=== PATIENT | female | born 1945 | race Caucasian/White ===

== ENCOUNTER → 2017-08-19 | Outpatient (CLI) | payer MEDICARE ==
[~2017-08-19] MED LIST: ACET500T68 PO; AMOX-559 PO; ASPI81TA94 PO; ATOR-1 PO; ATOR10TA24 PO; ATOR40TA69 PO; CEPH250C37 PO; CEPH500C24 PO; CHOL200022 PO; DICL100G39; DICL100G39 TOP; DOXY-179 PO; DULO60CA7 PO; ESTR10TA4 VG; ESTR42.5 VA; FLUT9.9S; FOLI0.4T56 PO; GABA-549 PO; HYDR-2966 PO; HYDR12.556 PO; LEVO50TA86 PO; LISI20TA29 PO; METF-410 PO; OMEP40CA48 PO; PARO40TA88 PO; POLY119P37 PO; POLY17PO25 PO; TRAM-420 PO; TRAZ-156 PO
== END ==
LOC: AUD 13:00
PROVIDERS: ATTEND Otolaryngology
DX: H69.81 Other specified disorders of Eustachian tube, right ear (principal)
CPT/HCPCS: 92557; 92570

== ENCOUNTER → 2017-09-11 | Outpatient (CLI) | payer MEDICARE, OTHER ==
[~2017-09-11] VITALS: Ht 157.5 cm; Wt 81.6 kg
[~2017-09-11] MED LIST changes: +CELECOXIB 200 MG CAP PO ONE; +FAMOTIDINE 20 MG TAB PO ONE; +LIDOCAINE/SOD BICARB 8.4% SYR ID ONE; +MELA10TA7 PO; +MIDAZOLAM 2 MG/2 ML VIAL IVP ONE; +NORMOSOL R SOLN(*) 1000 ML BAG 1,000 ML IV PRN; +ceFAZolin(*) 2GM/D5W 50ML 50 ML IVPB ONE
--- NOTE | 2017-09-11 15:12 | EKG ---
FACILITY: [facility] PATIENT NAME: JAG ALVES : [id number] MR: [id number] V: [id number] EXAM DATE: ORDERING PHYSICIAN: TRACY SHORT TECHNOLOGIST: Test Reason : Blood Pressure : / mmHG Vent. Rate : 072 BPM Atrial Rate : 072 BPM P-R Int : 166 ms QRS Dur : 092 ms QT Int : 422 ms P-R-T Axes : 063 -02 049 degrees QTc Int : 462 ms Normal sinus rhythm Possible Left atrial enlargement Poor R wave progression Incomplete right bundle branch block Abnormal ECG No previous ECGs available Confirmed by SRINIVAS BRAR ([id number]) on 09/12/2017 5:48:12 AM Referred By: IDALMIS HYATT Confirmed By:SRINIVAS BRAR
== END ==
LOC: RESP 08:00 → OR 09-16 00:18 → EDSTATUS 09-16 07:00
PROVIDERS: ATTEND Orthopaedic Surgery Hand Surgery
DX: Z01.810 Encounter for preprocedural cardiovascular examination (principal); M19.042 Primary osteoarthritis, left hand; I10 Essential (primary) hypertension; E03.9 Hypothyroidism, unspecified; E78.5 Hyperlipidemia, unspecified; K21.9 Gastro-esophageal reflux disease without esophagitis; G47.33 Obstructive sleep apnea (adult) (pediatric); R94.31 Abnormal electrocardiogram [ECG] [EKG]
CPT/HCPCS: 93005

== ENCOUNTER → 2017-10-07 | Outpatient (CLI) | payer MEDICARE ==
[~2017-10-07] MED LIST changes: -CELECOXIB 200 MG CAP PO ONE; -FAMOTIDINE 20 MG TAB PO ONE; -LIDOCAINE/SOD BICARB 8.4% SYR ID ONE; +LISI-362 PO; -MIDAZOLAM 2 MG/2 ML VIAL IVP ONE; -NORMOSOL R SOLN(*) 1000 ML BAG 1,000 ML IV PRN; -ceFAZolin(*) 2GM/D5W 50ML 50 ML IVPB ONE
== END ==
LOC: LAB 10:50
PROVIDERS: ATTEND Emergency Medicine
DX: E78.00 Pure hypercholesterolemia, unspecified (principal)
CPT/HCPCS: 36415; 82465; 83718; 84478

== ENCOUNTER 2017-10-30 04:05 | Day surgery (SDC) | payer MEDICARE ==
[~2017-10-30] VITALS: Ht 157.5 cm; Wt 76.7 kg
[2017-10-30] MEDS ORDERED: ONDANSETRON 4 MG/2 ML VIAL ONE (11:19)
[2017-10-30 12:00] VITALS: BP 132/68
[2017-10-30] MEDS ORDERED: PROPOFOL EMUL(*) 10MG/ML 20 ML 20 ML ONE (12:14)
[2017-10-30] MEDS ORDERED: LIDOCAINE MPF 1% 5 ML VIAL ONE (12:14)
[2017-10-30] MEDS ORDERED: DEXAMETHASONE SOD PHOS 10MG/ML ONE (12:14)
[2017-10-30] MEDS ORDERED: METOCLOPRAMIDE 10 MG/2 ML SDV ONE (12:28)
[2017-10-30] MEDS ORDERED: fentaNYL CITR 100 MCG/2 ML AMP ONE ×3 (12:28→16:11)
[2017-10-30] MEDS ORDERED: CELECOXIB 200 MG CAP PO ONE (12:30)
[2017-10-30] MEDS ORDERED: ceFAZolin(*) 1 GM VIAL 1 GM in NS(*) 0.9% 100 ML ADDVANT BAG 100 ML IVPB ONE (12:30)
[2017-10-30] MEDS ORDERED: NORMOSOL R SOLN(*) 1000 ML BAG 1,000 ML IV PRN (12:30)
[2017-10-30] MEDS ORDERED: LIDOCAINE/SOD BICARB 8.4% SYR ID ONE (12:30)
[2017-10-30] MEDS ORDERED: FAMOTIDINE 20 MG TAB PO ONE (12:30)
[2017-10-30] MEDS ORDERED: MIDAZOLAM 2 MG/2 ML VIAL IVP PRN (12:30)
[2017-10-30] MEDS ORDERED: ePHEDrine 25 MG/5 ML DISP.SYR IVP ONE ×2 (12:50→15:37)
[2017-10-30] MEDS ORDERED: BACITRACIN/POLYMY B OINT 15 GM TP ONE (13:51)
[2017-10-30] MEDS ORDERED: ROPIVACAINE 0.2% 20 ML VIAL ONE (13:51)
[2017-10-30] MEDS ORDERED: LIDOCAINE 1%MDV(*)200 MG/20 ML 1 ML ONE (14:21)
[2017-10-30] MEDS ORDERED: methylPREDNIS ACE 40MG/ML VIAL ONE ×2 (14:21→14:40)
[2017-10-30] MEDS ORDERED: KETOROLAC 15 MG/ML VIAL ONE (16:22)
[2017-10-30] MEDS ORDERED: ACETAMINOPHEN(*)1000 MG/100 ML 100 ML IVPB ONE (16:30)
[2017-10-30] MEDS ORDERED: HYDR-385 PO (16:53)
[2017-10-30] MEDS ORDERED: CEPH500T7 PO (16:53)
[2017-10-30 17:00] VITALS: BP 107/65
[2017-10-30 17:15] VITALS: BP 98/69
[2017-10-30] MEDS ORDERED: oxyCODONE HCL 5 MG CAP ONE (17:27)
[2017-10-30 17:31] VITALS: BP 100/68
[2017-10-30 17:35] VITALS: BP 96/87
[2017-10-30] MEDS ORDERED: ACET/HYDROC 5/325MG TH ER ONLY 2 TAB/BOTTLE PO ONE ×2 (17:35)
[2017-10-30 17:37] VITALS: BP 120/69
--- NOTE | 2017-10-30 19:56 | OPERATIVE REPORT 1 ---
EVENT DATE: October 30, 2017 SURGEON: Kendall Khan MD ANESTHESIOLOGIST: Eliecer Neri MD ANESTHESIA: General. SEQUINS STRINGER: Magdiel Ferguson PA-C PREOPERATIVE DIAGNOSES 1. Left basal joint arthritis. 2. Bilateral knee pain with known arthritis. POSTOPERATIVE DIAGNOSES 1. Left basal joint arthritis. 2. 2. Bilateral knee pain with known arthritis. PROCEDURE PERFORMED Left basal joint arthroplasty with pinning. ESTIMATED BLOOD LOSS Minimal. INTRAVENOUS FLUIDS 1300 mL TOURNIQUET TIME 26 minutes SPECIMENS No specimens. COMPLICATIONS No complications. IMPLANTS USED One 0.054 inch K-wire. SUMMARY OF PROCEDURE The patient was brought into the operating room and placed on the OR table in the supine position with the hand table at her left side. After obtaining adequate general anesthesia, the left upper extremity was prepped and draped in the usual sterile fashion. The limb was exsanguinated, and the tourniquet was inflated to 250 mmHg. A longitudinal incision was made over the basal joint and deepened through skin and subcutaneous tissue by blunt spreading to move the radial sensory nerve branches out of the way. The radial artery and venae comitantes were then identified and protected with a vessel loop, after which the capsule was incised. Unipolar cautery was used to DICTATION ENDS HERE. [facility]
--- NOTE | 2017-10-30 20:22 | OPERATIVE REPORT 1 ---
EVENT DATE: October 30, 2017 SURGEON: Kendall Khan MD ANESTHESIOLOGIST: Eliecer Neri MD ANESTHESIA: General. FOUNTAIN SERVER: Magdiel Ferguson PA-C PREOPERATIVE DIAGNOSES 1. Left basal joint arthritis. 2. Right knee pain. POSTOPERATIVE DIAGNOSES 1. Left basal joint arthritis. 2. Right knee pain. PROCEDURES PERFORMED 1. Left basal joint arthroplasty with pinning of the first to second metacarpal. 2. Steroid injection at right knee. ESTIMATED BLOOD LOSS Minimal. INTRAVENOUS FLUIDS 1300 mL TOURNIQUET TIME 26 minutes SPECIMENS No specimens. COMPLICATIONS No complications. IMPLANTS USED One 0.054-inch K-wire. SUMMARY OF PROCEDURE The patient was brought into the operating room and placed on the OR table in the supine position. After obtaining adequate general anesthesia, the left upper extremity was prepped and draped in the usual sterile fashion. The limb was exsanguinated. The tourniquet was inflated to 250 mmHg. A longitudinal incision was made over the basal joint and deepened through skin and subcutaneous tissue by blunt spreading to move the radial sensory nerves out of the way. The radial artery and venae comitantes were then identified and protected with a vessel loop, after which unipolar cautery was used to open the joint capsule. The fluid was clear. No sign of infection was seen. The cautery unit was then used to separate the worn out trapezium and intermetacarpal osteophytes from the surrounding tissues. When we had gotten about 50% of it exposed, it was quartered with an osteotome and then removed piecemeal. Once it had been fully removed, the basal joint was irrigated. I placed a spacer between the scaphoid and first metacarpal and then put her hand in opposition as though she was gripping it, at which point a percutaneous 0.054 -inch K-wire was driven across the first metacarpal and out into the second and third metacarpals. A Jurgan ball was applied. Subsequent to this, the wound was irrigated, and then the capsule was closed with 4-0 FiberWire. We then deflated the tourniquet and controlled bleeding with bipolar cautery as necessary before closing skin with nylon. She was given a dry, sterile dressing and a thumb spica splint. Meanwhile, her right knee was prepped with iodine and alcohol, and a 2 mL Depo- Medrol and 8 mL lidocaine injection was given into the right knee. She had talked about trying to get a left knee injection, but because she has a total joint arthroplasty, we had told her previously that that was not indicated. LUKE
[2017-11-27] MEDS ORDERED: OMEP40CA48 PO (14:30)
[2017-11-27] MEDS ORDERED: TRAZ-156 PO (15:03)
== END 2017-10-30 17:00 | disposition home or self-care (01) ==
LOC: OR 04:05
PROVIDERS: ATTEND Orthopaedic Surgery Hand Surgery
DX: M13.842 Other specified arthritis, left hand (principal); M25.561 Pain in right knee; E11.9 Type 2 diabetes mellitus without complications
CPT/HCPCS: 26535; 36416; 82948; A4565; A9270; C1713; J0131; J0690; J1030; J1100; J1885; J2001; J2250; J2405; J2704; J2765; J2795; J3010; J7050

== ENCOUNTER → 2017-11-13 | Outpatient (CLI) | payer MEDICARE ==
[~2017-11-13] MED LIST changes: +CEPH500T7 PO; +HYDR-385 PO
== END ==
LOC: LAB 11:59
PROVIDERS: ATTEND Emergency Medicine
DX: G62.9 Polyneuropathy, unspecified (principal); E11.9 Type 2 diabetes mellitus without complications
CPT/HCPCS: 36415; 82607; 83036

== ENCOUNTER 2017-12-22 17:20 | Emergency (ER) | payer MEDICARE ==
[~2017-12-22 17:20] MED LIST changes: -METF-410 PO; +METF-411 PO
--- NOTE | 2017-12-22 17:33 | ER Report ---
History and Physical Time Seen By MD: 17:32 HPI/ROS CHIEF COMPLAINT: Lightheadedness HISTORY OF PRESENT ILLNESS: This is a 72-year-old female who presents to the emergency department for vague overall not feeling well symptoms and lightheadedness. Patient states over the last week or so she's had a listing to the left side a sensation when her eyes are closed and moving backwards however she's not having any pain, no headaches no nausea or vomiting. Patient also states she's had a little lightheadedness and no dizziness as well as "just not feeling quite well". Patient denies shortness of breath, chest pain, no rashes, no nausea or vomiting. REVIEW OF SYSTEMS: Constitutional: No fever, no chills. Eyes: No discharge. ENT: No sore throat. Cardiovascular: No chest pain, no palpitations. Respiratory: No cough, no shortness of breath. Gastrointestinal: No abdominal pain, no vomiting. Genitourinary: No hematuria. Musculoskeletal: No back pain. Skin: No rashes. Neurological: As above. Allergies: Coded Allergies: wool (Verified Allergy, Mild, itching/hives/rash, 12/22/17) Home Meds Active Scripts Diclofenac Sodium 1% Gel (VOLTAREN 1% GEL) 100 Gm Gel..gram., 4 GM TOP QID Y for PRN, #1 TUBE 4 Refills Prov:CAMDEN ARENAS MD 12/07/17 Trazodone Hcl (TRAZODONE HCL) 50 Mg Tablet, 1 TAB PO DAILY, #90 TAB 0 Refills Prov:RASHAWN POE APRNP-C 11/27/17 Omeprazole (OMEPRAZOLE) 40 Mg Capsule.dr, 1 CAPSULE PO DAILY, #90 CAP 3 Refills Prov:RASHAWN POE APRN CERTIFIED MEDICAL TECHNICIAN ASSISTANT-C 11/27/17 Tramadol Hcl (TRAMADOL HCL) 50 Mg Tablet, 50-100 MG PO Q4-6H, #180 TAB 5 Refills Prov:CAMDEN ARENAS MD 10/08/17 Lisinopril (LISINOPRIL) 10 Mg Tablet, 10 MG PO QDAY, #30 TAB 11 Refills Prov:CAMDEN ARENAS MD 10/08/17 Levothyroxine Sodium (LEVOTHYROXINE SODIUM) 50 Mcg Tablet, 1 TAB PO QDAY for 90 Days, #90 TAB 3 Refills Prov:CAMDEN ARENAS MD 09/08/17 Gabapentin (GABAPENTIN) 300 Mg Capsule, 2 CAPSULE PO BID for 90 Days, #360 CAPSULE 3 Refills Prov:CAMDEN ARENAS MD 09/08/17 Atorvastatin Calcium (ATORVASTATIN CALCIUM) 80 Mg Tablet, 1 TAB PO QDAY, #90 TAB 3 Refills Prov:CAMDEN ARENAS MD 09/08/17 Paroxetine Hcl (PAROXETINE HCL) 40 Mg Tablet, 1 TAB PO DAILY, #90 TAB 3 Refills Prov:CAMDEN ARENAS MD 09/08/17 Metformin Hcl (METFORMIN HCL) 500 Mg Tablet, 1 TAB PO BID, #180 TAB 3 Refills Prov:CAMDEN ARENAS MD 09/08/17 Polyethylene Glycol 3350 (Glycolax) 17 Gram/Dose Powder, 17 GM PO DAILY Y for PRN, #3 BOTTLE 3 Refills Prov:CAMDEN ARENAS MD 08/13/17 Fluticasone Propionate (Flonase Allergy Relief) 9.9 Ml [place].susp, 1 SPR NA PRN , #1 BOTTLE 11 Refills Prov:CAMDEN ARENAS MD 06/19/17 Reported Medications Melatonin (Melatonin) 10 Mg Tab.rapdis, 1 TAB PO QHS 09/08/17 Cholecalciferol (Vitamin D3) (Vitamin D-3) 2,000 Unit Tablet, 1 TAB PO DAILY 06/09/17 Acetaminophen (TYLENOL EXTRA STRENGTH) 500 Mg Tablet, 1-2 TAB PO Y for PRN, TAB 05/25/17 Folic Acid (FOLIC ACID) Unknown Strength Tablet, PO 05/25/17 Discontinued Reported Medications Cephalexin 500 Mg Tab (KEFLEX 500 MG TAB) 500 Mg Tablet, 500 MG PO Q6H, #12 TAB 10/30/17 Hydrocodone Bit/Acetaminophen (HYDROCODON-ACETAMINOPHEN 5-325) 1 Each Tablet, 1- 2 EACH PO Q4-6H Y for PAIN, #30 TAB 10/30/17 Past Medical/Surgical History Patient has a past medical and surgical history of migraines, hypotension, hypercholesterolemia, arthritis, right shoulder pain, right knee pain, wears glasses, hard of hearing, type II diabetes, hypothyroidism, depression, anxiety , hysterectomy, tonsillectomy, bilateral cataract removal. Reviewed Nurses Notes: Yes Hx Smoking: No Smoking Status: Never Smoker Hx Alcohol Use: Yes Constitutional Vital Sign - Last 24 Hours 12/22/17 12/22/17 12/22/17 12/22/17 17:27 17:35 17:50 17:57 Temp 97.8 Pulse 89 83 79 Resp 16 B/P (MAP) 125/90 86/79 (81) Pulse Ox 92 94 92 O2 Delivery Room Air 12/22/17 12/22/17 12/22/17 12/22/17 18:00 18:05 18:20 18:30 Pulse 76 74 B/P (MAP) 119/80 (93) 136/75 (95) Pulse Ox 95 91 12/22/17 12/22/17 12/22/17 18:35 18:50 19:00 Pulse 75 77 B/P (MAP) 127/65 (85) Pulse Ox 92 93 Intake and Output 12/22/17 12/22/17 12/23/17 15:00 23:00 07:00 Intake Total 500 ml Balance 500 ml Physical Exam General Appearance: The patient is alert, has no immediate need for airway protection and no signs of toxicity. Eyes: Pupils equal and round no pallor or injection. ENT, Mouth: Mucous membranes are moist. Respiratory: There are no retractions, lungs are clear to auscultation. Cardiovascular: Regular rate and rhythm, no murmurs, clicks or rubs. Gastrointestinal: Abdomen is soft and non tender, no masses, bowel sounds normal. Neurological: Alert and oriented 4. Moving all extremities. No focal neuro deficits. Following all commands. Cranial nerves II through XII intact. Skin: Warm and dry, no rashes. Musculoskeletal: Neck is supple non tender. Extremities are nontender, nonswollen and have full range of motion. DIFFERENTIAL DIAGNOSIS: After history and physical exam differential diagnosis was considered for dehydration, viral syndrome, CVA, TIA, and CAD. Medical Decision Making Data Points Result Diagram: 12/22/17175412/22/17 175 Laboratory Hematology Test 12/22/17 17:55 Red Blood Count 4.17 M/uL (4.17-5.56) Mean Corpuscular Volume 94.9 fL (80.0-96.0) Mean Corpuscular Hemoglobin 33.8 pg (26.0-33.0) Mean Corpuscular Hemoglobin Concent 35.6 g/dL (32.0-36.0) Red Cell Distribution Width 12.2 % (11.5-14.5) Mean Platelet Volume 7.2 fL (7.2-11.1) Neutrophils (%) (Auto) 63.7 % (39.4-72.5) Lymphocytes (%) (Auto) 27.2 % (17.6-49.6) Monocytes (%) (Auto) 7.4 % (4.1-12.4) Eosinophils (%) (Auto) 1.0 % (0.4-6.7) Basophils (%) (Auto) 0.7 % (0.3-1.4) Nucleated RBC Relative Count (auto) 0.1 /100WBC Neutrophils # (Auto) 5.1 K/uL (2.0-7.4) Lymphocytes # (Auto) 2.2 K/uL (1.3-3.6) Monocytes # (Auto) 0.6 K/uL (0.3-1.0) Eosinophils # (Auto) 0.1 K/uL (0.0-0.5) Basophils # (Auto) 0.1 K/uL (0.0-0.1) Nucleated RBC Absolute Count (auto) 0.01 K/uL Sodium Level 136 mmol/L (137-145) Potassium Level 3.9 mmol/L (3.5-5.0) Chloride Level 100 mmol/L (98-107) Carbon Dioxide Level 26 mmol/L (22-31) Blood Urea Nitrogen 15 mg/dl (7-18) Creatinine 0.60 mg/dl (0.52-1.04) Glomerular Filtration Rate Calc > 60.0 Random Glucose 93 mg/dl (75-110) Calcium Level 9.5 mg/dl (8.4-10.2) Total Bilirubin 0.5 mg/dl (0.2-1.3) Aspartate Amino Transf (AST/SGOT) 30 U/L (0-35) Alanine Aminotransferase (ALT/SGPT) 31 U/L (0-56) Alkaline Phosphatase 53 U/L (0-126) Total Protein 6.8 gm/dl (6.3-8.2) Albumin 3.8 g/dl (3.5-5.0) Chemistry Test 12/22/17 17:55 White Blood Count 8.1 k/uL (4.5-11.0) Red Blood Count 4.17 M/uL (4.17-5.56) Hemoglobin 14.1 g/dL (12.0-16.0) Hematocrit 39.6 % (34.0-47.0) Mean Corpuscular Volume 94.9 fL (80.0-96.0) Mean Corpuscular Hemoglobin 33.8 pg (26.0-33.0) Mean Corpuscular Hemoglobin Concent 35.6 g/dL (32.0-36.0) Red Cell Distribution Width 12.2 % (11.5-14.5) Platelet Count 259 K/uL (150-450) Mean Platelet Volume 7.2 fL (7.2-11.1) Neutrophils (%) (Auto) 63.7 % (39.4-72.5) Lymphocytes (%) (Auto) 27.2 % (17.6-49.6) Monocytes (%) (Auto) 7.4 % (4.1-12.4) Eosinophils (%) (Auto) 1.0 % (0.4-6.7) Basophils (%) (Auto) 0.7 % (0.3-1.4) Nucleated RBC Relative Count (auto) 0.1 /100WBC Neutrophils # (Auto) 5.1 K/uL (2.0-7.4) Lymphocytes # (Auto) 2.2 K/uL (1.3-3.6) Monocytes # (Auto) 0.6 K/uL (0.3-1.0) Eosinophils # (Auto) 0.1 K/uL (0.0-0.5) Basophils # (Auto) 0.1 K/uL (0.0-0.1) Nucleated RBC Absolute Count (auto) 0.01 K/uL Glomerular Filtration Rate Calc > 60.0 Calcium Level 9.5 mg/dl (8.4-10.2) Total Bilirubin 0.5 mg/dl (0.2-1.3) Aspartate Amino Transf (AST/SGOT) 30 U/L (0-35) Alanine Aminotransferase (ALT/SGPT) 31 U/L (0-56) Alkaline Phosphatase 53 U/L (0-126) Total Protein 6.8 gm/dl (6.3-8.2) Albumin 3.8 g/dl (3.5-5.0) EKG/Imaging EKG Interpretation 12 lead EKG: Time of EKG 1755. Rhythm: Normal sinus rhythm, 76 bpm. [place]: normal QRS: normal ST segments: No ST depression or elevation identified, poor T-wave progression. ED Course/Re-evaluation Clinical Indication for ER IV: Hydration, IV Access ED Course The patient was admitted to room. A history and physical were obtained. Differential diagnoses were considered. An IV was established. A CBC, CMP were obtained. Lab studies unremarkable. EKG showing normal sinus rhythm. A 500 mL normal saline bolus was given. I did review these results with the patient and did tell her that this is likely a viral type of illness that will ask, patient states that she did have a cold recently that she has been getting over. Patient has no other concerns or complaints at this time. Patient was discharged home and instructed to follow-up with her primary care provider. Patient was agreeable to plan of care. Decision to Disposition Date: December 22, 2017 Decision to Disposition Time: 18:52 Depart Departure Latest Vital Signs Vital Signs Date Time Temp Pulse Resp B/P (MAP) Pulse Ox O2 Delivery O2 Flow Rate FiO2 12/22/17 19:00 127/65 (85) 12/22/17 18:50 77 93 12/22/17 17:27 97.8 16 Room Air Impression: Primary Impression: Viral illness Condition: Improved Disposition: HOME OR SELF-CARE Referrals: CAMDEN ARENAS MD (PCP) Patient Instructions: Viral Syndrome (ED) Additional Instructions: Drink plenty of fluids. Get plenty of rest. Continue with your current medications. Keep your appointment with Dr. Arenas. Return to the ED for any other concerns or worsening symptoms. ABHI DREW CERTIFIED MEDICAL TECHNICIAN ASSISTANT-BC December 22, 2017 17:33
[2017-12-22] MEDS ORDERED: NS(*) 0.9% 500 ML BAG 500 ML IV ONE (17:50)
--- NOTE | 2017-12-22 18:02 | EKG ---
FACILITY: [facility] [place] PATIENT NAME: JAG ALVES : [id number] MR: [id number] V: [id number] EXAM DATE: ORDERING PHYSICIAN: ABHI DREW TECHNOLOGIST: ANNE Test Reason : DIZZY AND WEAK Blood Pressure : / mmHG Vent. 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
[2017-12-22 18:09] LABS: PLATELET COUNT, AUTOMATED 259 K/uL (150-450)
[2017-12-22 19:00] VITALS: BP 127/65
== END 2017-12-22 19:08 | disposition home or self-care (01) ==
LOC: ER 17:31
DX: B34.9 Viral infection, unspecified (principal)
CPT/HCPCS: 84443; 85025; 93005; 96360; 99284; J7040; 82040; 82247; 82310; 82374; 82435; 82565; 82947; 84075; 84132; 84155; 84295; 84450; 84460; 84520

== ENCOUNTER → 2018-05-07 | Outpatient (CLI) | payer MEDICARE ==
[~2018-05-07] MED LIST changes: -CHOL200022 PO; +CHOL200085 PO; +FLU180SY11 IM; -METF-411 PO; +METF-450 PO; -TRAZ-156 PO; +TRAZ50TA34 PO
== END ==
LOC: LAB 11:55
PROVIDERS: ATTEND Emergency Medicine
DX: E11.9 Type 2 diabetes mellitus without complications (principal)
CPT/HCPCS: 36415; 83036

== ENCOUNTER → 2018-11-15 | Outpatient (CLI) | payer MEDICARE ==
[~2018-11-15] MED LIST changes: +CHOL200022 PO; -CHOL200085 PO
[2018-11-15 12:20] LABS: PLATELET COUNT, AUTOMATED 256 K/uL (150-450)
[2018-11-15 12:44] LABS: LDL CHOLESTEROL 50 mg/dl
== END ==
LOC: LAB 11:25
PROVIDERS: ATTEND Emergency Medicine
DX: E03.9 Hypothyroidism, unspecified (principal); E11.9 Type 2 diabetes mellitus without complications; I10 Essential (primary) hypertension; E66.9 Obesity, unspecified
CPT/HCPCS: 36415; 82040; 82247; 82310; 82374; 82435; 82465; 82565; 82947; 83036; 83718; 84075; 84132; 84155; 84295; 84443; 84450; 84460; 84478; 84520; 85025

== ENCOUNTER → 2019-01-17 | Outpatient (CLI) | payer MEDICARE, MEDICAID ==
[~2019-01-17] MED LIST changes: +GADOBENATE 529MG/1ML 15ML VIAL IVP ONE; +NS(*) 0.9% 50 ML BAG 50 ML ONE; -TRAZ50TA34 PO; +TRAZ50TA52 PO
--- NOTE | 2019-01-17 14:16 | RADIOLOGY IMAGING REPORT ---
FACILITY: [facility] PATIENT NAME: Shanti Chaves : 1945 MR: [id number] V: [id number] EXAM DATE: ORDERING PHYSICIAN: CAMDEN ARENAS TECHNOLOGIST: Location: [facility] [place] Patient: Shanti Chaves : 1945 Visit/Account:[id number] Date of Sevice: 01/17/2019 Study:MRI of the sella with and without gadolinium contrast Comparison study:None Contrast used:15 mL MultiHance gadolinium contrast Technique: Multiplanar MRI sequences were obtained through the brain before and after the ministratio n of gadolinium contrast. The examination was tailored for the evaluation of the sella. The examination demonstrates no evidence of acute intracranial hemorrhage. There is no evidence of ex tra-axial collection or hydrocephalus. A diffusion-weighted sequence was performed and demonstrates no evidence of active ischemia. The pituitary gland is normal in appearance. There is no evidence of abnormal signal within the pitui tary gland. There is no evidence of focal area of hypoenhancement within the pituitary gland. The suprasellar cistern is unremarkable. There is no evidence of abnormality of the cavernous sinuses . IMPRESSION:No significant abnormality identified. Specifically, there is no evidence of abnormality of the pituitary gland. Report Dictated By: Elbert Rodarte at 01/17/2019 2:06 PM Report E-Signed By: Elbert Rodarte at 01/17/2019 2:11 PM WSN:[id number]
--- NOTE | 2019-01-17 14:19 | RADIOLOGY IMAGING REPORT ---
FACILITY: [facility] - [place] PATIENT NAME: Shanti Chaves : 1945 MR: [id number] V: [id number] EXAM DATE: ORDERING PHYSICIAN: CAMDEN ARENAS TECHNOLOGIST: Location: [facility] [place] Patient: Shanti Chaves : 1945 Visit/Account:[id number] Date of Sevice: 01/17/2019 Study: MRI of the brain without and with gadolinium contrast. Indication: Visual field defect Comparison study: None Contrast used: 15 mL MultiHance gadolinium contrast Technique: Multiplanar MRI sequences were obtained through the brain before and after the administrat ion of gadolinium contrast. The examination demonstrates no evidence of acute intracranial hemorrhage. There is no evidence of ex tra-axial collection or hydrocephalus. There is no abnormal signal identified within the brain parenchyma. The pituitary gland is unremarkable in appearance. There is no evidence of abnormality of the pineal gland. A diffusion-weighted sequence was performed and demonstrates no evidence of active ischemia. There is no evidence of active infarct The orbits are unremarkable. The paranasal sinuses are unremarkable Following the administration of gadolinium contrast, there is no abnormal intracranial contrast enhan cement. IMPRESSION:Unremarkable MRI of the brain without and with intravenous contrast. Report Dictated By: Elbert Rodarte at 01/17/2019 2:11 PM Report E-Signed By: Elbert Rodarte at 01/17/2019 2:13 PM WSN:[id number]
== END ==
LOC: MRI 00:56
PROVIDERS: ATTEND Emergency Medicine
DX: H53.40 Unspecified visual field defects (principal)
CPT/HCPCS: 70553; A9577; J7050